=== PATIENT | male | born 1975 | race Caucasian/White ===

== ENCOUNTER → 2020-09-23 10:27 | Outpatient (BNVA) | payer SELFPAY | PROVIDERS: PCP Family Medicine Adult Medicine; Visit Provider Internal Medicine | DX: Z02.79 Encounter for issue of other medical certificate (principal) ==

== ENCOUNTER 2024-11-19 09:59 | Outpatient (AMB) | payer OTHER, SELFPAY | END 2024-11-19 10:45 | disposition home or self-care (01) | LOC: HO.HMGAL 09:59 | PROVIDERS: Visit Provider Registered Nurse Emergency | DX: J30.89 Other allergic rhinitis (principal) | CPT/HCPCS: 95117; 95165 ==

== ENCOUNTER 2024-12-19 09:41 | Outpatient (AMB) | payer OTHER, SELFPAY | END 2024-12-19 10:23 | disposition home or self-care (01) | LOC: HO.HMGAL 09:41 | PROVIDERS: Visit Provider Registered Nurse Emergency | DX: J30.89 Other allergic rhinitis (principal) | CPT/HCPCS: 95117; 95165 ==